=== PATIENT | female | born 2000 | race Caucasian/White ===

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

== ENCOUNTER 2019-02-13 19:32 | Emergency (ER) | payer BC ==
--- NOTE | 2019-02-13 21:03 | ER Document Report ---
ED Medical Screen (RME) - General Chief Complaint: Vaginal Bleeding Stated Complaint: VAGINAL BLEEDING Time Seen by Provider: 02/13/19 21:00 Primary Care Provider: JUSTINA WISE MD [Primary Care Provider] - Follow up as needed Mode of Arrival: Ambulatory Information source: Patient Notes: Patient is a 18-year-old who presents to the emergency department at approximately 5 weeks gestation with complaints of abdominal pain and vaginal bleeding. Patient reports the bleeding started this morning, states it is not very heavy and it is more like a spotting. Has not passed any clots. Patient reports she initially had pain in the right lower quadrant but she now has pain in the left upper quadrant. Patient's vital signs are within normal limits. Exam: Abdomen soft, mild tenderness to left upper quadrant without guarding or rebound tenderness. I have greeted and performed a rapid initial assessment of this patient. A comprehensive ED assessment and evaluation of the patient, analysis of test results and completion of the medical decision making process will be conducted by additional ED providers. Dictation of this chart was performed using voice recognition software; therefore, there may be some unintended grammatical errors. TRAVEL OUTSIDE OF THE [place] IN LAST 30 DAYS: No - Related Data Allergies/Adverse Reactions: No Known Allergies Allergy (Verified 02/20/18 14:33) Past Medical History - General Last Menstrual Period: 2018 - Social History Chew tobacco use (# tins/day): No Frequency of alcohol use: None Drug Abuse: None Renal/ Medical History: Denies: Hx Peritoneal Dialysis Psychiatric Medical History: Denies: Hx Depression Past Surgical History: Reports: Hx Orthopedic Surgery - left foot tendon and nerve repair secondary to laceration - Immunizations Immunizations up to date: Yes Hx Diphtheria, Pertussis, Tetanus Vaccination: Yes Physical Exam - Vital signs Vitals: Temp Pulse Resp BP Pulse Ox 98.3 F 65 17 132/77 H 100 02/13/19 19:43 02/13/19 19:43 02/13/19 19:43 02/13/19 19:43 02/13/19 19:43 Course - Vital Signs Vital signs: Temp Pulse Resp BP Pulse Ox 98.3 F 65 17 132/77 H 100 02/13/19 19:43 02/13/19 19:43 02/13/19 19:43 02/13/19 19:43 02/13/19 19:43 Doctor's Discharge - Discharge Referrals: JUSTINA WISE MD [Primary Care Provider] - Follow up as needed
--- NOTE | 2019-02-13 22:10 | RADIOLOGY REPORT (SQ) ---
EXAM DESCRIPTION: US TRANSVAGINAL COMPLETED DATE/TME: 02/13/2019 20:59 CLINICAL HISTORY: 18 years, Female, preg, vag bleed COMPARISON: None. TECHNIQUE: Transverse and longitudinal transvaginal sonographic images in a first trimester patient LIMITATIONS: None. FINDINGS: The uterus measures 6.4 x 3.4 x 4.9 cm. The myometrium is homogenous. There is a visible intrauterine gestational sac. No yolk sac or pole. No detected heart tones. The maternal right ovary measures 2.4 x 3.4 x 2.3 cm, the left 1.7 x 1.8 x 1.8 cm. There is a simple appearing cyst of the right ovary likely reflecting corpus luteal cyst measuring 1.8 x 1.7 cm. No solid adnexal mass. Small amount of free fluid. Normal flow to each ovary. Current ultrasound age is 5 weeks 2 days. IMPRESSION: Intrauterine gestational sac with current ultrasound age 5 weeks 2 days. No yolk sac or visible pole at this time. Findings could reflect early , however close clinical follow-up recommended. Follow-up with beta hCG levels may be of benefit. Simple appearing right ovarian cyst, likely corpus luteal cyst. Recommendations for f/u of ovarian anechoic simple cyst, simple cyst with single thin <3 mm septation, or focal calcification in wall of cyst (1): Pre-menopause: <= 5 cm No follow-up imaging recommended >5 cm - <=7 cm US f/u annually >7 cm Consider MR w/IVC or surgical evaluation Post-menopause (>=1 year from last menstrual period): <=3 cm No follow-up imaging recommended >3 cm - <=7 cm US f/u annually >7 cm Consider MR w/IVC or surgical evaluation (1) Recommendations based on 2010 SRU Consensus Conference Statement on the Management of Asymptomatic Ovarian and Other Adnexal Cysts Imaged at US: Radiology. 2009;256(3):172-36 copyright 2010 [employer]- All Rights Reserved
[2019-02-13 22:54] LABS: ABSOLUTE BASOPHILS # (AUTO) 0.1 10^3/uL (0.0-0.2); ABSOLUTE EOSINOPHILS # (AUTO) 0.1 10^3/uL (0.0-0.6); ABSOLUTE LYMPHOCYTES (AUTO) 2.9 10^3/uL (0.5-4.7); ABSOLUTE MONOCYTES (AUTO) 0.7 10^3/uL (0.1-1.4); ABSOLUTE NEUT (AUTO) 5.3 10^3/uL (1.7-8.2); APPEARANCE,URINE CLEAR; BASOPHILS % (AUTO) 0.6 % (0-2); BILIRUBIN,URINE NEGATIVE (NEGATIVE); COLOR,URINE YELLOW; GLUCOSE, URINE NEGATIVE (NEGATIVE); HEMATOCRIT 38.9 % (36.0-47.0); HEMOGLOBIN 13.8 g/dL (12.0-15.5); KETONES,URINE NEGATIVE (NEGATIVE); LEUKOCYTE ESTERASE,URINE NEGATIVE (NEGATIVE); LYMPHOCYTES % (AUTO) 31.8 % (13-45); MEAN CORPUSCULAR HEMOGLOBIN 32.6 pg (27.0-33.4); MEAN CORPUSCULAR HGB CONC 35.5 g/dL (32.0-36.0); MEAN CORPUSCULAR VOLUME 92 fl (80-97); MONOCYTES % (AUTO) 7.9 % (3-13); NITRITE,URINE NEGATIVE (NEGATIVE); PLATELET COUNT 281 10^3/uL (150-450); PROTEIN,URINE NEGATIVE (NEGATIVE); RED BLOOD COUNT 4.25 10^6/uL (3.72-5.28); RED CELL DISTRIBUTION WIDTH 12.9 % (11.5-14.0); SEGMENTED NEUTROPHILS % (AUTO) 58.7 % (42-78); TOTAL CELLS COUNTED % (AUTO) 100 %; URINE SPECIFIC GRAVITY 1.019
[2019-02-13 23:12] LABS: ALANINE AMINOTRANSFERASE 29 U/L (5-35); ALBUMIN 4.3 g/dL (3.7-5.6); ALKALINE PHOSPHATASE 45 U/L (50-135); ANION GAP 7 (5-19); ASPARTATE AMINO TRANSFERASE 22 U/L (5-30); BILIRUBIN,DIRECT 0.2 mg/dL (0.0-0.4); BILIRUBIN,TOTAL 0.3 mg/dL (0.2-1.3); BLOOD UREA NITROGEN 13 mg/dL (7-20); CALCIUM 9.4 mg/dL (8.4-10.2); CARBON DIOXIDE 25 mmol/L (22-30); CHLORIDE 104 mmol/L (98-107); GLUCOSE 89 mg/dL (75-110); LIPASE 157.1 U/L (23-300); POTASSIUM 3.7 mmol/L (3.6-5.0); SODIUM 135.7 mmol/L (137-145); TOTAL PROTEIN 7.7 g/dL (6.3-8.2)
--- NOTE | 2019-02-13 23:39 | ER Document Report ---
ED General - General Chief Complaint: Vaginal Bleeding Stated Complaint: VAGINAL BLEEDING Time Seen by Provider: 02/13/19 21:00 Primary Care Provider: CHAD NESS MD [Primary Care Provider] - 02/15/19 JUSTINA WISE MD [COMMUNITY BASED STAFF] - Follow up as needed Mode of Arrival: Ambulatory Notes: Patient is a 18-year-old female at roughly 5 weeks by LMP who presents with a mild amount of lower abdominal pain as well as vaginal spotting that started just prior to arrival. She states that the pain as a stabbing, aching pain to her central low abdomen. She regarded the pain as being severe when present although it has abated since that time. Nothing was noted to improve or worsen the pain. She also notes that she is had a slight amount of vaginal spotting since then although denies any heavy vaginal bleeding. No dysuria or vaginal discharge. No trauma to the abdomen. Has not had any similar symptoms during this . Has not yet established OB care for this . TRAVEL OUTSIDE OF THE [place] IN LAST 30 DAYS: No - Related Data Allergies/Adverse Reactions: No Known Allergies Allergy (Verified 02/20/18 14:33) Past Medical History - General Information source: Patient Last Menstrual Period: 2018 - Social History Smoking Status: Never Smoker Chew tobacco use (# tins/day): No Frequency of alcohol use: None Drug Abuse: None Lives with: Family Family History: Reviewed & Not Pertinent Patient has suicidal ideation: No Patient has homicidal ideation: No Renal/ Medical History: Denies: Hx Peritoneal Dialysis Psychiatric Medical History: Denies: Hx Depression Past Surgical History: Reports: Hx Appendectomy, Hx Orthopedic Surgery - left foot tendon and nerve repair secondary to laceration - Immunizations Immunizations up to date: Yes Hx Diphtheria, Pertussis, Tetanus Vaccination: Yes Review of Systems - Review of Systems Notes: Constitutional: Negative for fever. HENT: Negative for sore throat. Eyes: Negative for visual changes. Cardiovascular: Negative for chest pain. Respiratory: Negative for shortness of breath. Gastrointestinal: Positive for lower abdominal pain Genitourinary: Positive for vaginal bleeding Musculoskeletal: Negative for back pain. Skin: Negative for rash. Neurological: Negative for headaches, weakness or numbness. 10 point ROS negative except as marked above and in HPI. Physical Exam - Vital signs Vitals: Temp Pulse Resp BP Pulse Ox 98.3 F 65 17 132/77 H 100 02/13/19 19:43 02/13/19 19:43 02/13/19 19:43 02/13/19 19:43 02/13/19 19:43 Interpretation: Normal Notes: PHYSICAL EXAMINATION: GENERAL: Well-appearing, well-nourished and in no acute distress. HEAD: Atraumatic, normocephalic. EYES: Pupils equal round and reactive to light, extraocular movements intact, sclera anicteric, conjunctiva are normal. ENT: nares patent, oropharynx clear without exudates. Moist mucous membranes. NECK: Normal range of motion, supple without lymphadenopathy LUNGS: Breath sounds clear to auscultation bilaterally and equal. No wheezes rales or rhonchi. HEART: Regular rate and rhythm without murmurs ABDOMEN: Soft, nontender, normoactive bowel sounds. No guarding, no rebound. No masses appreciated. EXTREMITIES: Normal range of motion, no pitting or edema. No cyanosis. NEUROLOGICAL: No focal neurological deficits. Moves all extremities spontaneously and on command. PSYCH: Normal mood, normal affect. SKIN: Warm, Dry, normal turgor, no rashes or lesions noted. Course - Re-evaluation Re-evalutation: 02/13/19 23:34 Patient presents with a mild amount of vaginal bleeding in the setting of an early first trimester . Transvaginal ultrasound shows early intrauterine . no active bleeding at time of presentation. She is Rh positive. Patient's abdominal exam is otherwise benign without any focal tenderness. I do not suspect an acute appendicitis, pyelonephritis, cystitis, or bowel obstruction. At this time I have informed the patient that she needs to return to the emergency department or the women's clinic in 48 hours for recheck of her quantitative beta hCg and possible repeat ultrasound to determine the status of the . At this time will discharge with return precautions and follow-up recommendations. Verbal discharge instructions given a the bedside and opportunity for questions given. Medication warnings reviewed. Patient is in agreement with this plan and has verbalized understanding of return precautions and the need for primary care follow-up in the next 24-72 hours. - Vital Signs Vital signs: Temp Pulse Resp BP Pulse Ox 98.3 F 91 H 16 121/62 99 02/14/19 01:08 02/14/19 01:08 02/14/19 01:08 02/14/19 01:08 02/14/19 01:08 - Laboratory Result Diagrams: 02/13/19 22:25 02/13/19 22:25 Laboratory results interpreted by me: 02/13/19 02/13/19 22:25 22:25 Sodium 135.7 L Alkaline Phosphatase 45 L Beta HCG, Quant 1069.60 H Urine Blood LARGE H Urine Urobilinogen 2.0 H - Diagnostic Test Radiology reviewed: Reports reviewed Discharge - Discharge Clinical Impression: First trimester , Hemorrhage, , early Condition: Good Disposition: HOME, SELF-CARE Additional Instructions: You need to return to the ED or the women's health clinic in 48 hours for a recheck of your hormone level. The ultrasound could be an early versus possible nonviable . Please return if you develop severe abdominal pain, bleeding that goes through more than 2 pads for more than 2 hours, pass out, or have any other symptoms that are concerning to you. Please follow-up closely with your OBGYN regarding todays visit. Referrals: JUSTINA WISE MD [COMMUNITY BASED STAFF] - Follow up as needed CHAD NESS MD [Primary Care Provider] - 02/15/19
[2019-02-14 01:13] VITALS: BP 121/62
== END 2019-02-14 01:13 | disposition home or self-care (01) ==
LOC: ER 19:32
DX: O46.91 Antepartum hemorrhage, unspecified, first trimester (principal); O26.891 Other specified pregnancy related conditions, first trimester; R10.30 Lower abdominal pain, unspecified; Z3A.01 Less than 8 weeks gestation of pregnancy
CPT/HCPCS: 36415; 76817; 80053; 81001; 83690; 84702; 85025; 86900; 86901; 99284

== ENCOUNTER 2019-02-14 15:13 | Emergency (ER) | payer BC ==
[2019-02-14] MEDS ORDERED: NORMAL SALINE 1000 ML 1,000 ML IV ONE (16:02)
[2019-02-14] MEDS ORDERED: ACETAMINOPHEN 325 MG TABLET PO ONE (16:02)
--- NOTE | 2019-02-14 16:10 | ER Document Report ---
ED Medical Screen (RME) - General Chief Complaint: Vag Bleeding, +preg <12wks Stated Complaint: VAGINAL BLEEDING Time Seen by Provider: 02/14/19 15:56 Primary Care Provider: CHAD NESS MD [Primary Care Provider] - Follow up as needed Information source: Patient TRAVEL OUTSIDE OF THE [place] IN LAST 30 DAYS: No - HPI Notes: 02/14/19 16:04 18-year-old female 1 para 0 presents to the ED for evaluation of right flank, suprapubic pain and vaginal bleeding, states she is approximately 5 weeks . reports she was seen in the ED last night for similar issue, was told at that time she had a cyst on her ovary that ruptured and she has a 50/50 chance of miscarrying. Patient states that pain has become progressively worse as well as bleeding, states she is gone through 1 pad today. When seen in ER yesterday, typen and screen was done, she is O positive RhoGam is not indicated. Patient states she would like a reevaluation. Was supposed to be following up with [facility] on Wednesday for reevaluation. exam: R cva tenderness with suprapubric tenderness. S1 S2 regular. lungs CTA will recheck hcg quant and cbc, will give tylenol for pain. consider imaging based on provider's assessment and lab values. pt agreeable with plan of care. I have greeted and performed a rapid initial assessment of this patient. A comprehensive ED assessment and evaluation of the patient, analysis of test results and completion of medical decision making process will be conducted by an additional ED providers. - Related Data Allergies/Adverse Reactions: No Known Allergies Allergy (Verified 02/14/19 15:55) Past Medical History - Social History Frequency of alcohol use: None Drug Abuse: None Renal/ Medical History: Denies: Hx Peritoneal Dialysis Psychiatric Medical History: Denies: Hx Depression Past Surgical History: Reports: Hx Appendectomy, Hx Orthopedic Surgery - left foot tendon and nerve repair secondary to laceration - Immunizations Immunizations up to date: Yes Hx Diphtheria, Pertussis, Tetanus Vaccination: Yes Physical Exam - Vital signs Vitals: Temp Pulse Resp BP Pulse Ox 98.3 F 95 H 16 124/72 97 02/14/19 15:24 02/14/19 15:24 02/14/19 15:24 02/14/19 15:24 02/14/19 15:24 - Abdominal Inspection: Normal Tenderness: Tender - R flank Course - Vital Signs Vital signs: Temp Pulse Resp BP Pulse Ox 98.3 F 95 H 16 124/72 97 02/14/19 15:24 02/14/19 15:24 02/14/19 15:24 02/14/19 15:24 02/14/19 15:24 Doctor's Discharge - Discharge Referrals: CHAD NESS MD [Primary Care Provider] - Follow up as needed
[2019-02-14 16:45] LABS: ABSOLUTE EOSINOPHILS # (AUTO) 0.1 10^3/uL (0.0-0.6); ABSOLUTE LYMPHOCYTES (AUTO) 1.7 10^3/uL (0.5-4.7); ABSOLUTE MONOCYTES (AUTO) 0.5 10^3/uL (0.1-1.4); ABSOLUTE NEUT (AUTO) 5.8 10^3/uL (1.7-8.2); BASOPHILS % (AUTO) 0.5 % (0-2); EOSINOPHILS % (AUTO) 1.1 % (0-6); HEMATOCRIT 39.5 % (36.0-47.0); LYMPHOCYTES % (AUTO) 20.8 % (13-45); MEAN CORPUSCULAR HEMOGLOBIN 32.5 pg (27.0-33.4); MEAN CORPUSCULAR HGB CONC 35.3 g/dL (32.0-36.0); MEAN CORPUSCULAR VOLUME 92 fl (80-97); PLATELET COUNT 279 10^3/uL (150-450); RED BLOOD COUNT 4.29 10^6/uL (3.72-5.28); RED CELL DISTRIBUTION WIDTH 13.1 % (11.5-14.0); SEGMENTED NEUTROPHILS % (AUTO) 71.6 % (42-78); TOTAL CELLS COUNTED % (AUTO) 100 %; WHITE BLOOD COUNT 8.2 10^3/uL (4.0-10.5)
--- NOTE | 2019-02-14 22:58 | RADIOLOGY REPORT (SQ) ---
EXAM DESCRIPTION: US TRANSVAGINAL COMPLETED DATE/TME: 02/14/2019 21:47 CLINICAL HISTORY: 18 years, Female, pain + preg COMPARISON: 02/13/2019 ultrasound TECHNIQUE: Transverse and longitudinal transvaginal sonographic images in a first trimester patient LIMITATIONS: None. FINDINGS: The uterus measures 6.8 x 4.0 x 3.5 cm. The myometrium is homogenous. The previously described intrauterine gestational sac is not visible on today's exam. Findings are concerning for missed . The endometrium measures 3.8 mm in thickness. The right ovary measures 3 by 2 x 2 centimeters, the left 2 x 1 x 1 cm. Simple appearing 2.0 x 1.8 x 1.2 cm cyst of the right ovary, also present previously. No solid adnexal mass. A small amount of free fluid. Arterial and venous flow to each ovary. IMPRESSION: The previously described intrauterine gestational sac is not visible on today's study, concerning for missed . Follow-up with beta hCG levels is recommended. If warranted, short-term follow-up ultrasound could also be performed. Small amount of free fluid. Stable appearing right ovarian cyst. Recommendations for f/u of ovarian anechoic simple cyst, simple cyst with single thin <3 mm septation, or focal calcification in wall of cyst (1): Pre-menopause: <= 5 cm No follow-up imaging recommended >5 cm - <=7 cm US f/u annually >7 cm Consider MR w/IVC or surgical evaluation Post-menopause (>=1 year from last menstrual period): <=3 cm No follow-up imaging recommended >3 cm - <=7 cm US f/u annually >7 cm Consider MR w/IVC or surgical evaluation (1) Recommendations based on 2010 SRU Consensus Conference Statement on the Management of Asymptomatic Ovarian and Other Adnexal Cysts Imaged at US: Radiology. 2009;256(3):014-70 copyright 2010 [employer]- All Rights Reserved
[2019-02-14] MEDS ORDERED: KETOROLAC TROMETHAMINE INJ/PF 30 MG/1 ML SDV IV ONE (23:13)
--- NOTE | 2019-02-14 23:13 | ER Document Report ---
ED General <MAO SEWELL Kan - Last Filed: 02/14/19 23:20> - General Mode of Arrival: Ambulatory Information source: Patient, Relative, [facility] Records TRAVEL OUTSIDE OF THE [place] IN LAST 30 DAYS: No - HPI Onset: Other Onset/Duration: Gradual, Persistent Quality of pain: Cramping Severity: Moderate Associated symptoms: Nausea. denies: Fever, Vomiting Exacerbated by: Denies Relieved by: Denies Similar symptoms previously: Yes Recently seen / treated by doctor: Yes - Yesterday in the emergency department <GEORGIA XIAO - Last Filed: 02/15/19 03:13> - General Chief Complaint: Vag Bleeding, +preg <12wks Stated Complaint: VAGINAL BLEEDING Time Seen by Provider: 02/14/19 15:56 Primary Care Provider: CHAD NESS MD [Primary Care Provider] - 02/20/19 Notes: 18-year-old female 1 para 0 presents to the ED for evaluation of right flank, suprapubic pain and vaginal bleeding, states she is approximately 5 weeks . reports she was seen in the ED last night for similar issue, was told at that time she had a cyst on her ovary that ruptured and she has a 50/50 chance of miscarrying. Patient states that pain has become progressively worse as well as bleeding, states she is gone through 1 pad today. Patient does report passing large clots. When seen in ER yesterday, typen and screen was done, she is O positive RhoGam is not indicated. Patient states she would like a reevaluation. Was supposed to be following up with [facility] REPRESENTATIVE on Wednesday for reevaluation. (GEORGIA XIAO) - Related Data Allergies/Adverse Reactions: No Known Allergies Allergy (Verified 02/14/19 15:55) Past Medical History - General Information source: Patient - Social History Smoking Status: Never Smoker Frequency of alcohol use: None Drug Abuse: None Lives with: Family Family History: Reviewed & Not Pertinent Patient has suicidal ideation: No Patient has homicidal ideation: No Renal/ Medical History: Denies: Hx Peritoneal Dialysis Psychiatric Medical History: Denies: Hx Depression Past Surgical History: Reports: Hx Appendectomy, Hx Orthopedic Surgery - left foot tendon and nerve repair secondary to laceration - Immunizations Immunizations up to date: Yes Hx Diphtheria, Pertussis, Tetanus Vaccination: Yes <XIAO,SAROJ - Last Filed: 02/15/19 03:13> Review of Systems <GEORGIA XIAO - Last Filed: 02/15/19 03:13> - Review of Systems Notes: REVIEW OF SYSTEMS: CONSTITUTIONAL : Denies fever, chills, or sweats. Denies recent illness. Denies weight loss, recent hospitalizations. EENT: Denies visual changes, eye pain. Denies sore throat, oral lesions, difficulty swallowing. CARDIOVASCULAR: Denies chest pain. Denies palpitations. Denies lower extremity edema. RESPIRATORY: Denies cough. Denies shortness of breath, wheezing. GASTROINTESTINAL: Denies abdominal distention. Denies vomiting, or diarrhea. Denies blood in vomitus, stools, or per rectum. Denies black, tarry stools. Denies constipation. GENITOURINARY: Denies difficulty urinating, painful urination, frequency, blood in urine, or vaginal discharge. MUSCULOSKELETAL: Denies back or neck pain or stiffness. Denies joint pain or swelling. SKIN: Denies rash, lesions or sores. HEMATOLOGIC : Denies easy bruising or bleeding. LYMPHATIC: Denies swollen glands. NEUROLOGICAL: Denies confusion or altered mental status. Denies loss of consciousness. Denies dizziness or lightheadedness. Denies headache. Denies weakness or paralysis. Denies problems difficulty with ambulation, slurred speech. Denies sensory loss, numbness, or tingling. Denies seizures. PSYCHIATRIC: Denies anxiety or stress. Denies depression, suicidal ideation, or homicidal ideation. Denies visual or auditory hallucinations. (GEORGIA XIAO) Physical Exam <GEORGIA XIAO - Last Filed: 02/15/19 03:13> - Vital signs Vitals: Temp Pulse Resp BP Pulse Ox 98.3 F 95 H 16 124/72 97 02/14/19 15:24 02/14/19 15:24 02/14/19 15:24 02/14/19 15:24 02/14/19 15:24 - Notes Notes: PHYSICAL EXAMINATION: GENERAL: Well-appearing, well-nourished and in no acute distress. HEAD: Atraumatic, normocephalic. EYES: Pupils equal round and reactive to light, extraocular movements intact, conjunctiva are normal. ENT: Nares patent, oropharynx clear without exudates. Moist mucous membranes. NECK: Normal range of motion, supple without lymphadenopathy LUNGS: Breath sounds clear to auscultation bilaterally and equal. No wheezes rales or rhonchi. HEART: Regular rate and rhythm without murmurs ABDOMEN: Soft, nontender, nondistended abdomen. No guarding, no rebound. No masses appreciated. Female : deferred Musculoskeletal: Normal range of motion, no pitting or edema. No cyanosis. NEUROLOGICAL: Cranial nerves grossly intact. Normal speech, normal gait. Normal sensory, motor exams PSYCH: Normal mood, normal affect. SKIN: Warm, Dry, normal turgor, no rashes or lesions noted. (GEORGIA XIAO) Course - Laboratory Result Diagrams: 02/14/19 16:31 <MAO SEWELL - Last Filed: 02/14/19 23:20> - Laboratory Result Diagrams: 02/14/19 16:31 - Diagnostic Test Radiology reviewed: Image reviewed, Reports reviewed <GEORGIA XIAO - Last Filed: 02/15/19 03:13> - Re-evaluation Re-evalutation: 02/15/19 03:11 Laboratory 02/14/19 02/14/19 02/14/19 16:31 16:31 16:31 WBC 8.2 RBC 4.29 Hgb 14.0 Hct 39.5 MCV 92 MCH 32.5 MCHC 35.3 RDW 13.1 Plt Count 279 Seg Neutrophils % 71.6 Lymphocytes % 20.8 Monocytes % 6.0 Eosinophils % 1.1 Basophils % 0.5 Absolute Neutrophils 5.8 Absolute Lymphocytes 1.7 Absolute Monocytes 0.5 Absolute Eosinophils 0.1 Absolute Basophils 0.0 Beta HCG, Quant 867.52 H Total Beta HCG POSITIVE Blood Type O POSITIVE Rhogam Indicated RHOGAM NOT INDICATED Obstetrics Ultrasound 02/14/19 21:47 IMPRESSION: The previously described intrauterine gestational sac is not visible on today's study, concerning for missed . Follow-up with beta hCG levels is recommended. If warranted, short-term follow-up ultrasound could also be performed. Small amount of free fluid. Stable appearing right ovarian cyst. Recommendations for f/u of ovarian anechoic simple cyst, simple cyst with single thin <3 mm septation, or focal calcification in wall of cyst (1): Pre-menopause: <= 5 cm No follow-up imaging recommended >5 cm - <=7 cm US f/u annually >7 cm Consider MR w/IVC or surgical evaluation Post-menopause (>=1 year from last menstrual period): <=3 cm No follow-up imaging recommended >3 cm - <=7 cm US f/u annually >7 cm Consider MR w/IVC or surgical evaluation (1) Recommendations based on 2010 SRU Consensus Conference Statement on the Management of Asymptomatic Ovarian and Other Adnexal Cysts Imaged at US: Radiology. 2009;256(3):943-54 copyright 2010 [employer]- All Rights Reserved Temp Pulse Resp BP Pulse Ox 98.6 F 88 18 122/64 99 02/14/19 23:30 02/14/19 23:30 02/14/19 23:30 02/14/19 23:30 02/14/19 23:30 18-year-old female at approximately 5 weeks presents for the second time in 2 days with complaint of vaginal bleeding, abdominal pain. Vital signs reviewed and within normal limits. Patient does not appear toxic or dehydrated. She is in no acute distress. Previous medical records and nursing notes rev iewed. Today patient's ultrasound does not show the gestational sac that was seen on yesterday's ultrasound and the patient's hCG is downtrending. This is likely a missed . Patient does have OB follow-up in 5 days but was encouraged to return with worsening pain and bleeding. Patient was provided copies of her lab work and imaging. Patient was evaluated and treated as appropriate for the patient's presenting symptoms and complaint, with consideration of any critical or life threatening conditions that may be associated with their obtained history and exam as noted above. All results were discussed with patient and her mother who is at the bedside. Patient provided the opportunity to ask questions, and express concerns. Patient was educated on treatments based on their presumed diagnosis as noted above. At this time we will discharge the patient with return precautions and follow-up recommendations. Verbal discharge instructions given a the bedside. Medication warnings reviewed. Patient is in agreement with this plan and has verbalized understanding of return precautions. After careful consideration I feel that that patient can be safely discharged from the emergency department, they were advised to followup with a primary care physician in 2-3 days. Dictation on this chart was performed using voice recognition software and may result in unintended grammatical, spelling, syntax or errors. (GEORGIA XIAO) - Vital Signs Vital signs: Temp Pulse Resp BP Pulse Ox 98.6 F 88 18 122/64 99 02/14/19 23:30 02/14/19 23:30 02/14/19 23:30 02/14/19 23:30 02/14/19 23:30 - Laboratory Laboratory results interpreted by me: 02/14/19 16:31 Beta HCG, Quant 867.52 H Discharge <MAO SEWELL - Last Filed: 02/14/19 23:20> <GEORGIA XIAO - Last Filed: 02/15/19 03:13> - Discharge Clinical Impression: Missed Condition: Good Disposition: HOME, SELF-CARE Instructions: Miscarriage ([facility]) Additional Instructions: Please follow-up with [facility] SERVICES REPRESENTATIVE as already scheduled. Please return with any worsening pain, fever, inability to tolerate food or fluids. Forms: Return to Work Referrals: CHAD NESS MD [Primary Care Provider] - 02/20/19
[2019-02-14 23:43] VITALS: BP 122/64
== END 2019-02-14 23:43 | disposition home or self-care (01) ==
LOC: ER 15:13
DX: O02.1 Missed abortion (principal); N83.201 Unspecified ovarian cyst, right side; R11.0 Nausea; R10.9 Unspecified abdominal pain; R10.30 Lower abdominal pain, unspecified; Z90.49 Acquired absence of other specified parts of digestive tract
CPT/HCPCS: 99284; 96361; 96374; 86900; 86901; 36415; 84702; 85025; 76817; J1885; J7030